=== PATIENT | female | born 1990 | race Caucasian/White ===

== ENCOUNTER → 2018-01-04 | Outpatient (CLI) | payer OTHER ==
[~2018-01-04] MED LIST: ACET325T14 PO; CLIN300C8 PO; DOCU100C33 PO; HYDR25TA11 PO; IBUP-1223 PO; OXYC-302 PO; OXYC1TAB7 PO; PNV1TABL4 PO
== END | disposition home or self-care (01) ==
LOC: STAR 10:07
PROVIDERS: ATTEND Obstetrics & Gynecology
DX: Z02.9 Encounter for administrative examinations, unspecified (principal)

== ENCOUNTER 2018-01-18 09:34 | Day surgery (SDC) | payer OTHER ==
[~2018-01-18] VITALS: Ht 167.6 cm; Wt 63.2 kg
[2018-01-18] MEDS ORDERED: LACTATED RINGERS 1,000 ML IV SCH (10:06)
[2018-01-18 10:25] VITALS: BP 118/73
[2018-01-18] MEDS ORDERED: BUPIVACAINE/PF-EPI 0.25% 1:200K ONE (10:28)
[2018-01-18] MEDS ORDERED: SILVER NITRATE STICK TP ONE (10:28)
[2018-01-18] MEDS ORDERED: DIAZEPAM 5 MG TABLET PO ONE (10:30)
[2018-01-18] MEDS ORDERED: ONDANSETRON ODT 8 MG PO ONE (10:30)
[2018-01-18] MEDS ORDERED: SCOPOLAMINE PATCH, 1.5MG PATCH.TD72 TD ONE (10:30)
[2018-01-18] MEDS ORDERED: MIDAZOLAM 1 MG/ML, 2ML ONE (10:30)
[2018-01-18] MEDS ORDERED: ACETAMINOPHEN 500 MG TABLET PO ONE (10:30)
[2018-01-18] MEDS ORDERED: FENTANYL PF 250 MCG/5ML ONE (10:30)
[2018-01-18] MEDS ORDERED: PROPOFOL 10 MG/ML, 20ML ONE (10:33)
[2018-01-18] MEDS ORDERED: SUCCINYLCHOLINE 20 MG/ML, 10ML ONE (10:35)
[2018-01-18] MEDS ORDERED: ROCURONIUM 10MG/ML,5ML ONE (10:35)
[2018-01-18 10:42] LABS: HCG UR SG 1.028 (1.003-1.030)
[2018-01-18] MEDS ORDERED: GLYCOPYRROLATE 0.2MG/1ML, 5ML ONE (13:44)
[2018-01-18] MEDS ORDERED: NEOSTIGMINE 1 MG/ML, 10ML ONE (13:44)
[2018-01-18] MEDS ORDERED: KETOROLAC 30 MG/1 ML ONE (13:44)
[2018-01-18] MEDS ORDERED: DEXAMETHASONE 4 MG/ML, 1ML ONE (13:44)
[2018-01-18] MEDS ORDERED: ROCURONIUM 10 MG/ML,10ML ONE (13:44)
[2018-01-18] MEDS ORDERED: CEFAZOLIN 1,000 MG ONE (13:44)
[2018-01-18] MEDS ORDERED: ONDANSETRON 2MG/ML, 2ML ONE (13:44)
[2018-01-18] MEDS ORDERED: FENTANYL PF 100 MCG/2ML ONE (14:48)
[2018-01-18] MEDS ORDERED: OXYcodone 5 MG/5 ML ORAL.SOL UDC ONE (14:48)
[2018-01-18] MEDS: FENTANYL PF 100 MCG/2ML IV PRN ×2 (14:53→15:02)
[2018-01-18] MEDS ORDERED: MORPHINE SULFATE 4 MG/ML, 1ML IVPush PRN (15:00)
[2018-01-18] MEDS ORDERED: MIDAZOLAM 1 MG/ML, 2ML IV PRN (15:00)
[2018-01-18] MEDS ORDERED: EPHEDRINE 50 MG/ML, 1ML IVPush PRN (15:00)
[2018-01-18] MEDS ORDERED: HYDROmorphone 1 MG/ML, 1ML IV PRN (15:00)
[2018-01-18] MEDS ORDERED: ALBUTEROL SULFATE 2.5 MG/3 ML NPPB PRN (15:00)
[2018-01-18] MEDS ORDERED: hydrALAzine 20 MG/ML, 1ML IV PRN (15:00)
[2018-01-18] MEDS ORDERED: PROMETHAZINE 25 MG/ML, 1ML IM PRN (15:00)
[2018-01-18] MEDS ORDERED: OXYcodone 5 MG/5 ML ORAL.SOL UDC PO PRN (15:00)
[2018-01-18] MEDS ORDERED: LABETALOL 5MG/ML, 20ML IV PRN (15:00)
[2018-01-18] MEDS ORDERED: ONDANSETRON ODT 8 MG PO PRN (15:00)
[2018-01-18] MEDS ORDERED: HALOPERIDOL 5 MG/ML IV PRN (15:00)
[2018-01-18] MEDS ORDERED: PROMETHAZINE 25 MG SUPP PR PRN (15:00)
[2018-01-18] MEDS ORDERED: MEPERIDINE/PF 25MG/0.5ML IVPush PRN (15:00)
[2018-01-18] MEDS ORDERED: ONDANSETRON 2MG/ML, 2ML IV PRN (15:00)
== END 2018-01-18 16:46 | disposition home or self-care (01) ==
LOC: OUT 09:34
PROVIDERS: ATTEND Obstetrics & Gynecology
DX: Z30.2 Encounter for sterilization (principal); F17.210 Nicotine dependence, cigarettes, uncomplicated; G43.909 Migraine, unspecified, not intractable, without status migrainosus; F41.9 Anxiety disorder, unspecified
CPT/HCPCS: 58670; 81025; 88302; J0330; J0690; J1100; J1885; J2250; J2405; J2704; J2710; J3010; J3490; J7120; Q0162